=== PATIENT | male | born 1990 | race African-American/Black ===

== ENCOUNTER 2023-03-23 22:33 | Inpatient (IN) | payer OTHER, MEDICAID ==
[2023-03-23] MEDS ORDERED: OLANZapine 5 MG TAB PO PRN (22:39)
[2023-03-23] MEDS ORDERED: IBUPROFEN 600 MG TAB PO PRN (22:39)
[2023-03-23] MEDS ORDERED: hydrOXYzine HCL 50 MG/ML 1 ML VIAL IM PRN (22:39)
[2023-03-23] MEDS ORDERED: MAGNESIUM HYDROXIDE 2,400 MG/30 ML CUP PO PRN (22:39)
[2023-03-23] MEDS ORDERED: OLANZapine 10 MG VIAL IM PRN (22:39)
[2023-03-23] MEDS ORDERED: MAG HYDROX/AL HYDROX/SIMETH 30 ML CUP PO PRN (22:39)
[2023-03-23] MEDS ORDERED: ACETAMINOPHEN TAB 325 MG TAB PO PRN (22:39)
[2023-03-23] MEDS ORDERED: hydrOXYzine pamoate 25 MG CAP PO PRN (22:42)
[2023-03-24] MEDS: NICOTINE 14MG/24HR PATCH TRANSDERM SCH (09:30)
[2023-03-24] MEDS ORDERED: LORazepam 1 MG TAB PO PRN ×2 (11:47→11:48)
[2023-03-24] MEDS ORDERED: LORazepam 2 MG/ML INJ IM PRN (11:47)
[2023-03-24] MEDS: ARIPiprazole 5 MG TAB PO SCH (13:02)
[2023-03-24] MEDS: SERTRALINE 50 MG TAB PO SCH (13:02)
--- NOTE | 2023-03-24 13:04 | P.HP ---
Psychiatric H&P - . H&P Date: 03/24/23 History & Physical: Allergies Allergy/AdvReac Type Severity Reaction Status Date / Time No Known Allergies Allergy Verified 01/26/23 01:15 Vital Signs Temp 97.5 F L 03/24/23 00:47 Pulse 58 L 03/24/23 00:47 Resp 16 03/24/23 00:47 BP 119/58 03/24/23 00:47 Pulse Ox 99 03/24/23 00:47 FiO2 Intake & Output 03/23/23 03/24/23 03/24/23 18:59 06:59 18:59 Weight 59.92 kg 03/24/23 11:50 IDENTIFYING DATA: Patient is a 32-year-old -Russian male, currently lives with his friend and is essentially homeless saying a different People's houses, works in a factory, has 5 kids HPI: Patient presented to the hospital as a transfer from [facility] on a petition and certificate. According to petition patient apparently was making threats to end his life and suicidal ideations, poor self-care and using drugs/drinking. Patient was seen today in his room and appeared to be somewhat lethargic/tired. He was agreeable to speak to card writer hand briefly. He claims that he is here to "seek help" however was fairly vague and evasive about the circumstances that led him to come to the hospital. He did state that he is been having "messed up thoughts" and states that he is "tired of living". He claims that he is mainly been having stressors of being homeless, unstable with his living situation living between different friend's house on couches and also "feeling like a burden". He states that he was from his girlfriend of 14 years back in August and has been not coping well. Claims that they have 5 children together. He states that "she cheated on me". He claims that he has high levels of anxiety during the day and also depression, he did give a vague history of possible manic episodes where we has decreased need for sleep and increased energy and risk-taking behaviors. Claims that his sleep and appetite are poor. Patient denies any suicidal or homicidal ideations intent or plan. At this time patient denies any auditory or visual hallucinations. Patient denies any flight of ideas racing thoughts and increased in goal directed behavior. Patient admits to using alcohol regularly, drinks about 2 or more beers a day, has a history of withdrawal symptoms including shakes and tremors. Patient states that he has been abusing cocaine more recently however was vague about the quantity. States that he also smokes cigarettes. PAST PSYCHIATRIC HISTORY: Patient states that he has history of ADHD and depression and anxiety. Patient is supposed to currently be on Ritalin, BuSpar and Lamictal however has not been taking it. Patient denies any previous psychi atric hospitalizations. Patient denies any psychiatric outpatient follow-up. Claims that he has a history of overdosing, cutting himself and also hanging. PMH:denies ALLERGIES: as per EMR CHEMICAL DEPENDENCY HISTORY: as per HPI FAMILY PSYCHIATRIC/SUBSTANCE USE HISTORY: Claims that his mother has a history of bipolar disorder SOCIAL HISTORY: Patient was born and raised in [facility], now currently lives in [place]. States that he completed up to 11th grade in school. States that he has 5 kids, currently lives with a friend and also is homeless. Claims that he has been to halfway in the past however did not relay what the charges was. MENTAL STATUS EXAM: General Appearance: Patient appears to be thin, multiple tattoos, stated age is alert, directable, and attempts to cooperate. Patient appears to have poor hygiene and grooming. Behavior: Patient is seated without any agitated behavior. Constricted, attempts to cooperate. Speech: Patient's speech is fluent and nonpressured. Vague, concrete. Mood/Affect: Patient reports their mood is depressed and anxious, affect is congruent and constricted. Suicidality/Homicidality: Patient denies having any homicidal ideation intent or plan. Denies any suicidal ideations intent or plan Perceptions: Patient denies any visual hallucinations and denies any auditory hallucinations Though content/process: There is no evidence of any delusional thought content and thought process is linear and goal-directed. [place]. Memory and concentration: AOX3, grossly intact for the purposes of this session. Can spell "WORLD" backwards Judgment and insight: poor STRENGTHS/WEAKNESSES: strength is that patient is resilient. Weakness is that patient has poor judgment and is impulsive INTELLECT: average IMPRESSIONS: Bipolar depression History of ADHD Cocaine use disorder Alcohol use disorder Nicotine dependence PLAN: -Patient is admitted under voluntary status to MHU for stabilization of psychiatric symptoms and safety. Patient has signed adult voluntary form and medication consent and is placed in patient's chart. -Medications : Will start patient on Zoloft 50 mg daily for mood/anxiety, Abilify 5 mg daily for mood stabilization, trazodone 50 mg daily at bedtime for insomnia/mood. -Ativan and Zyprexa PRN for agitation/aggression. Vistaril when necessary for anxiety. -CIAK protocol with Ativan PRN for ETOH withdrawal -Patient was counselled on substance abuse and desired to cut back on use -Patient was informed of the risks, benefits and side effects of the medication and patient verbally consented to taking the medications. Patient signed med consent form and was placed in chart. -Internal Medicine consult to perform medical evaluation and physical. -NRT - nicotine patch -SW on board for discharge planning. Encourage patient to participate in groups to work on coping skills. 03/24/23 13:00
[2023-03-24] MEDS ORDERED: traZODone HCL 50 MG TAB PO SCH (21:00)
--- NOTE | 2023-03-25 07:43 | CONS ---
CONSULTATION HISTORY OF PRESENT ILLNESS: A 32-year-old white male, who was in psych [facility] for kind of a anitha type episode, losing he is a smoker, possibly some asthma. Otherwise, he is a pretty healthy jose elias. He is on nicotine patch. Psychiatry put him on Desyrel, Zoloft, Zyprexa, nicotine patch, Ativan p.r.n., Abilify. Otherwise medically stable. PHYSICAL EXAMINATION: VITAL SIGNS: Temp 97.5, blood pressure 119/58, O2 is 99% on room air, pulse 58, respiratory rate 16 to 18. Plese see further details in ER. ASSESSMENT: Probable bipolar depression, anxiety, nicotine addiction, probable asthma. Continue current medications per Psychiatry. Medically, he is a pretty healthy kid. Nicotine patch for smoking. Otherwise, please see further orders. MMODL / IJN: [id number] /
[2023-03-25] MEDS: SERTRALINE 50 MG TAB PO SCH (08:43)
[2023-03-25] MEDS: NICOTINE 14MG/24HR PATCH TRANSDERM SCH (08:43)
[2023-03-25] MEDS: ARIPiprazole 5 MG TAB PO SCH (08:43)
--- NOTE | 2023-03-25 10:16 | P.PN ---
Progress Note - Text Progress Note Date: 03/25/23 Interval history: Patient was seen today laying in his bed and was agreeable to speak to creative services writer. Patient appeared to go continue to be fairly concrete, constricted in his affect. He is also fairly nonchalant disinterested in the conversation. He continues to state that he feels "depressed" and states that he is not participating much in groups. He claims that he did not sleep well last night, we spoke about increasing his medications that she is okay with. He states that he may want to harm someone however did not give a specific target and states that "they're not in here". He denies any suicidal thoughts at this time. Denies any auditory or visual hallucinations. He is not endorsing any paranoia, he was fairly concrete however was directable and answered questions appropriately. He states that his appetite is fair at this time. He has been taking his medications and not reporting any side effects. MENTAL STATUS EXAM: General Appearance: Patient appears to be thin, multiple tattoos, stated age is alert, directable, and attempts to cooperate. Patient appears to have mildly improving hygiene and grooming. Behavior: Patient is seated without any agitated behavior. Constricted, nonchalant. Speech: Patient's speech is fluent and nonpressured. Vague, concrete. Mood/Affect: Patient reports their mood is depressed, affect is congruent and constricted. Suicidality/Homicidality: Patient denies having any homicidal ideation intent or plan. Denies any suicidal ideations intent or plan Perceptions: Patient denies any visual hallucinations and denies any auditory hallucinations Though content/process: There is no evidence of any delusional thought content and thought process is linear and goal-directed. [place]. Memory and concentration: AOX3, grossly intact for the purposes of this session Judgment and insight: poor IMPRESSIONS: Bipolar depression History of ADHD Cocaine use disorder Alcohol use disorder Nicotine dependence Plan: -Patient is admitted under voluntary status to MHU for stabilization of psychiatric symptoms and safety. Patient has signed adult voluntary form and medication consent and is placed in patient's chart. -Medications : increase Zoloft 100 mg daily for mood/anxiety, increase Abilify 5 mg daily for mood stabilization, increase trazodone 100 mg daily at bedtime for insomnia/mood. decrease librium 10 mg QID for etoh withdrawal sx and taper down. -Ativan and Zyprexa PRN for agitation/aggression. Vistaril when necessary for anxiety. -CIWA protocol with Ativan PRN for ETOH withdrawal -NRT - nicotine patch -SW on board for discharge planning. Encourage patient to participate in groups to work on coping skills.
[2023-03-25] MEDS ORDERED: traZODone HCL 100 MG TAB PO SCH (21:00)
[2023-03-26 02:13] VITALS: TEMP 98.3
[2023-03-26] MEDS: ARIPiprazole 5 MG TAB PO SCH (08:54)
[2023-03-26] MEDS: NICOTINE 14MG/24HR PATCH TRANSDERM SCH (08:54)
[2023-03-26] MEDS: SERTRALINE 100 MG TAB PO SCH (08:54)
--- NOTE | 2023-03-26 10:20 | P.PN ---
Progress Note - Text Progress Note Date: 03/26/23 Interval history: Patient was seen today sitting in on group and was agreeable to speak to policy writer typist in the office. Patient continues to have a fairly constricted affect, mild improvement in his tone of voice. He states that he is doing "fine" today. He claims that he has been improving with regard to depression and also his anxiety. He claims that he is able to go to groups and was trying to go [facility] more groups yesterday and also this morning. Claims that he is eating fairly. He states that he is getting worried about his work and states that "I'm been a missed a whole paycheck". He did ask about the different options about signing himself out. He states that he is agreeable to continue with treatment. Claims that he had very minor withdrawal alcohol symptoms last night however tased feeling better. He spoke more about his medications and treatment plan. He claims that last night he slept fairly initially however did wake up in the middle the night and found it difficult to get back to sleep. He denies any homicidal or suicidal thoughts at this time. Denies any auditory or visual hallucinations. He is not endorsing any paranoia, he was fairly concrete however was directable and answered questions appropriately. He has been taking his medications and not reporting any side effects. MENTAL STATUS EXAM: General Appearance: Patient appears to be thin, multiple tattoos, stated age is alert, directable, and attempts to cooperate. Patient appears to have mildly improving hygiene and grooming. Behavior: Patient is seated without any agitated behavior. Constricted, nonchalant, mildly Speech: Patient's speech is fluent and nonpressured. concrete. Mood/Affect: Patient reports their mood is improving mildly, affect is congruent and less constricted. Suicidality/Homicidality: Patient denies having any homicidal ideation intent or plan. Denies any suicidal ideations intent or plan Perceptions: Patient denies any visual hallucinations and denies any auditory hallucinations Though content/process: There is no evidence of any delusional thought content and thought process is linear and goal-directed. [place]. Memory and concentration: AOX3, grossly intact for the purposes of this session Judgment and insight: improving mildly IMPRESSIONS: Bipolar depression History of ADHD Cocaine use disorder Alcohol use disorder Nicotine dependence Plan: -Patient is admitted under voluntary status to MHU for stabilization of psychiatric symptoms and safety. Patient has signed adult voluntary form and medication consent and is placed in patient's chart. -Medications : continue Zoloft 100 mg daily for mood/anxiety, Abilify 5 mg daily for mood stabilization, increase trazodone 150 mg daily at bedtime for insomnia/mood. decrease librium 10 mg TID for etoh withdrawal sx and taper down over the weekend -Ativan and Zyprexa PRN for agitation/aggression. Vistaril when necessary for anxiety. -WA protocol with Ativan PRN for ETOH withdrawal -NRT - nicotine patch -SW on board for discharge planning. Encourage patient to participate in groups to work on coping skills. if patient is doing well and improved psychiatrically then likely dishcarge wednesday back to friends house.
[2023-03-26] MEDS: traZODone HCL 50 MG TAB PO SCH (21:55)
[2023-03-27 07:07] VITALS: RESP 18
[2023-03-27] MEDS: SERTRALINE 100 MG TAB PO SCH (08:56)
[2023-03-27] MEDS: NICOTINE 14MG/24HR PATCH TRANSDERM SCH (08:56)
[2023-03-27] MEDS: ARIPiprazole 5 MG TAB PO SCH (08:56)
--- NOTE | 2023-03-27 09:00 | P.PN ---
Subjective Progress Note Date: 03/27/23 Principal diagnosis: Bipolar 1 depressed Alcohol use disorder Diagnosis: Bipolar 1 depressed Rule out ADHD The patient says he was able to sleep last night and he has not been sleeping before he came here. Of course he staying in a friend's apartment sleeping in a closet without even a mattress on the floor. He goes to work and a job he does not like but that he put up with in trying to provide a home in food for his and children. He's been with her for 14 years she finally got a job to help out and then started having an affair with one of the men she works with and threw him out. He is coming off of alcohol and is on Librium for that seems to doing well and she since he slept well last night. He says that in the past what seemed to really help with Ritalin because he has a long-term difficulty with energy and focus. Objective the patient looks tired and sad decreased eye contact. He is oriented to person place time and circumstance self-care is minimal does not look like he combed his hair today. He still can't see any hope as he has a -end job. His has thrown him out. No psychotic symptoms evidence or acknowledge. Gait and station he moves kind of slowly. Appears to be intelligent and able to understand that he has to do well the children are going to do well because is not taking good care of them. Current medications are Zoloft 100 Abilify 5 at night does seem to have helped him sleep as well as Librium for withdrawal seems to be going well.. Assessment he still pretty depressed and I think would still be a danger to himself it will be just as important to work on post discharge planning and resources. He says he has gone to counseling in the past and didn't find somewhat useful but had trouble remembering the ideas during everyday function Objective - Vital Signs Vital signs: Vital Signs Temp 98.3 F 03/26/23 02:00 Pulse 88 03/27/23 07:06 Resp 18 03/27/23 07:06 BP 98/57 03/27/23 07:06 Pulse Ox 99 03/27/23 07:06 FiO2
[2023-03-27] MEDS: NICOTINE GUM (POLACRILEX) 2 MG GUM BUCCAL PRN (16:11)
[2023-03-27] MEDS: traZODone HCL 50 MG TAB PO SCH (20:47)
[2023-03-28] MEDS: ARIPiprazole 5 MG TAB PO SCH (08:50)
[2023-03-28] MEDS: SERTRALINE 100 MG TAB PO SCH (08:50)
[2023-03-28] MEDS: NICOTINE 14MG/24HR PATCH TRANSDERM SCH (08:50)
[2023-03-28] MEDS: NICOTINE GUM (POLACRILEX) 2 MG GUM BUCCAL PRN ×3 (14:57→20:49)
--- NOTE | 2023-03-28 14:59 | P.PN ---
Subjective Progress Note Date: 03/28/23 Principal diagnosis: Bipolar 1 depressed Alcohol use disorder The patient says that he is doing fine and we should just let him get home he needs to get home because important things to do and he has a plan and he will be fine here I asked him to be more specific he said he can get to and from work by riding his bicycle he has a place to stay he has a job. He says the medicine that was being given to him by his outpatient doctor which she felt worked better than the medicine here. It should be noted that he doesn't have Ritalin here and did have that there. So he is going to just go back to his other doctor and the change back to the medicines he had. He said the reason he came off of it was he was having trouble finding a time where he could get in to see his doctor and not miss work. He says he will continue the current medicine until he can see that other doctor and get on that. He says he been going to groups and participating Objective the patient is very flat somewhat sullen affect but says he feels "fine". He denies any psychotic symptoms any suicidal symptoms any agitation. He said he only slept about 4 or 5 hours last night and would like something that would extend that further. He is not irrational I do not see any psychotic responses he does not report any delusional thinking. Assessment patient is not that insightful but does seem to be fairly stable. Plan I'm going to add in melatonin 5 with the trazodone 150 also urged him to w rite up a discharge plan and presented to the team tomorrow. Objective - Vital Signs Vital signs: Vital Signs Temp 98.3 F 03/26/23 02:00 Pulse 89 03/28/23 06:09 Resp 18 03/28/23 06:09 BP 97/55 03/28/23 06:09 Pulse Ox 99 03/28/23 06:09 FiO2
--- NOTE | 2023-03-28 15:02 | P.PN ---
Subjective Progress Note Date: 03/28/23 Principal diagnosis: Bipolar 1 depressed Alcohol use disorder Diagnosis: Bipolar 1 depressed Rule out ADHD The patient says he was able to sleep only 4 hours last night He is coming off of alcohol and is on Librium for that seems to doing well. He does not seem to be agitated or restless. He says that in the past what seemed to really help with Ritalin because he has a long-term difficulty with energy and focus. He says he just wants to get out here go back to work right his bike back and forth to work see his outpatient doctor and get back on the medicines that were working for him before. Objective the patient looks tired and sad decreased eye contact. However when he talked he seemed to be oriented and logical denied any kind of psychotic symptoms any depression or suicidality Current medications are Zoloft 100 Abilify 5 at night he is also on trazodone at 150 which for some reason did not work as well last night, Librium for withdrawal seems to be going well.. Assessment he still pretty depressed and I think would still be a danger to himself it will be just as important to work on post discharge planning and resources. He says he has gone to counseling in the past and didn't find somewhat useful but had trouble remembering the ideas during everyday function. Plan: I'll add a little melatonin to his trazodone and told him to work on his discharge plan and presented to the 8 Objective - Vital Signs Vital signs: Vital Signs Temp 98.3 F 03/26/23 02:00 Pulse 89 03/28/23 06:09 Resp 18 03/28/23 06:09 BP 97/55 03/28/23 06:09 Pulse Ox 99 03/28/23 06:09 FiO2
[2023-03-28] MEDS: traZODone HCL 50 MG TAB PO SCH (20:48)
[2023-03-28] MEDS ORDERED: MELATONIN 5 MG TABLET PO SCH (21:00)
[2023-03-29 06:18] VITALS: BP 102/55; PULSE 91
[2023-03-29] MEDS: SERTRALINE 100 MG TAB PO SCH (07:50)
[2023-03-29] MEDS: NICOTINE 14MG/24HR PATCH TRANSDERM SCH (07:50)
[2023-03-29] MEDS: ARIPiprazole 5 MG TAB PO SCH (07:50)
--- NOTE | 2023-03-29 10:25 | P.DS ---
Providers Date of admission: 03/24/23 00:10 Expected date of discharge: 03/29/23 Attending physician: Fede Hu MD Consults: 03/23/23 22:39 Consult Physician Routine Consulting Provider: Moy Brooke Consult Reason/Comments: H&P and medical Do you want consulting provider notified?: Yes, Notify in am Primary care physician: Moy Brooke - Discharge Diagnosis(es) (1) Bipolar depression Current Visit: Yes Status: Acute Priority: High (2) History of ADHD Current Visit: Yes Status: Acute Priority: Low (3) Cocaine use disorder Current Visit: Yes Status: Acute Priority: High (4) Alcohol use disorder Current Visit: Yes Status: Acute Priority: Medium (5) Nicotine dependence Current Visit: Yes Status: Acute Priority: Low Hospital Course: Admission HPI: Admission note was completed by television writer "Patient is a 32-year-old - [place] male, currently lives with his friend and is essentially homeless saying a different People's houses, works in a factory, has 5 kids. Patient presented to the hospital as a transfer from [facility] on a petition and certificate. According to petition patient apparently was making threats to end his life and suicidal ideations, poor self-care and using drugs/drinking. Patient was seen today in his room and appeared to be somewhat lethargic/tired. He was agreeable to speak to television writer briefly. He claims that he is here to "seek help" however was fairly vague and evasive about the circumstances that led him to come to the hospital. He did state that he is been having "messed up thoughts" and states that he is "tired of living". He claims that he is mainly been having stressors of being homeless, unstable with his living situation living between different friend's house on couches and also "feeling like a burden". He states that he was from his girlfriend of 14 years back in August and has been not coping well. Claims that they have 5 children together. He states that "she cheated on me". He claims that he has high levels of anxiety during the day and also depression, he did give a vague history of possible manic episodes where we has decreased need for sleep and increased energy and risk-taking behaviors. Claims that his sleep and appetite are poor. Patient denies any suicidal or homicidal ideations intent or plan. At this time patient denies any auditory or visual hallucinations. Patient denies any flight of ideas racing thoughts and increased in goal directed behavior. Patient admits to using alcohol regularly, drinks about 2 or more beers a day, has a history of withdrawal symptoms including shakes and tremors. Patient states that he has been abusing cocaine more recently however was vague about the quantity. States that he also smokes cigarettes." Hospital course: Upon admission to the unit patient was directable and agreeable to commence treatment and signed adult voluntary form . Patient was initially isolative however with time and treatment he got along well with other patients on the unit and followed unit protocol. Patient was compliant with the medications and denied any side effects throughout hospital course. Patient was started on Abilify 5 mg daily for mood stabilization, Zoloft increased her dose of 100 mg daily for mood/anxiety, trazodone 150 mg daily at bedtime for insomnia/mood, melatonin 5 mg daily at bedtime for sleep. Patient was placed on Librium scheduled which was gradually tapered down and Ativan when necessary and CIWA was for alcohol withdrawal. Patient spoke of his stressors and engaged in therapy both group and individual. Patient was also seen by medical team for history and physical exam. Throughout the course of the hospitalization patient gradually improved with regards to mood, anxiety, suicidal thoughts, sleep and became more future oriented with improved insight and judgment. On the day of discharge patient denied any suicidal or homicidal ideations intent or plan denied any auditory or visual hallucinations. Patient endorsed wanting to live for his health and family. The patient denied any access to guns or weapons. Patient denied any paranoia and did not endorse any delusions. Patient does have a significant history of substance abuse and was counseled on abstaining from all substances including alcohol and marijuana. Patient was offered however declined inpatient substance-abuse rehab. Patient elected to do outpatient substance use treatment program through [facility]. Patient was also counseled on the medications and need for regular compliance and was encouraged to follow-up with their outpatient appointment for mental health and also for primary care. Prior to discharge a family meeting will be arranged by nephrology social worker to answer any questions and ensure safety upon discharge. Mental status exam: General Appearance: Patient appears to be stated age is alert, pleasant, and cooperative. Patient is in no acute distress and has improved hygiene and grooming Behavior: Patient is calmly seated without any agitated behavior. Speech: Patient's speech is fluent and nonpressured. Mood/Affect: Patient reports their mood is "good", affect is congruent and euthymic. Suicidality/Homicidality: Patient denies having any suicidal or homicidal ideation intent or plan. Perceptions: Patient denies any auditory or visual hallucinations. Though content/process: There is no evidence of any delusional thought content and thought process is linear and goal-directed. more future oriented Memory and concentration: AOX3, grossly intact for the purposes of this session. Can spell "WORLD" backwards correctly. Judgment and insight: improved with guarded prognosis Impression: Bipolar depression History of ADHD Cocaine use disorder Alcohol use disorder Nicotine dependence Plan: -Continue with discharge today as patient has improved and stabilized psychiatrically and is not currently an imminent threat to himself and/or others. Patient will remain at chronically elevated risk for harm to self and/or others due to his polysubstance abuse. -Continue medications: Abilify 5 mg daily for mood stabilization, Zoloft 100 mg daily for mood/anxiety, trazodone 150 mg daily at bedtime for mood/insomnia, melatonin 5 mg daily at bedtime for sleep. -Patient was counseled on the need for medication compliance and appropriate follow-up at mental health and also primary care for medical issues. Patient verbalized understanding and agreed. -Social work to help Renata patient's discharge today back to his friend's house and to ensure safety at the home. Social work also to arrange for patients follow up appointments with [facility] for psychiatric care along with follow up with primary care provider. -Patient counseled on abstaining from recreational drugs and marijuana and alcohol. Was informed/educated on the adverse effects on their physical and mental health. Patient verbally agreed and understood. Patient was offered substance abuse treatment however declined at this time. -Patient was instructed to return to the hospital or seek immediate medical care if their psychiatric or medical symptoms do worsen or reoccur. Allergies Allergy/AdvReac Type Severity Reaction Status Date / Time No Known Allergies Allergy Verified 01/26/23 01:15 Vital Signs Temp 98.3 F 03/26/23 02:00 Pulse 91 03/29/23 06:17 Resp 18 03/29/23 06:17 BP 102/55 03/29/23 06:17 Pulse Ox 99 03/29/23 06:17 FiO2 Patient Condition at Discharge: Stable Plan - Discharge Summary Discharge Rx Participant: Yes New Discharge Prescriptions: New Nicotine 14Mg/24Hr Patch [Habitrol] 1 patch TRANSDERM DAILY 14 Days #14 patch Sertraline [Zoloft] 100 mg PO DAILY 30 Days #30 tab ARIPiprazole [Abilify] 5 mg PO DAILY 30 Days #30 tab Melatonin 5 mg PO HS 30 Days #30 tab Nicotine Gum (Polacrilex) [Nicorette] 2 mg BUCCAL Q2HR PRN pieceofgum PRN Reason: Nicotine Cravings traZODone HCL 150 mg PO HS 30 Days #30 tablet hydrOXYzine pamoate [Vistaril] 50 mg PO DAILY PRN 30 Days #60 cap PRN Reason: Anxiety Discharge Medication List ARIPiprazole [Abilify] 5 mg PO DAILY 30 Days #30 tab 03/29/23 [Rx] Melatonin 5 mg PO HS 30 Days #30 tab 03/29/23 [Rx] Nicotine 14Mg/24Hr Patch [Habitrol] 1 patch TRANSDERM DAILY 14 Days #14 patch 03/29/23 [Rx] Nicotine Gum (Polacrilex) [Nicorette] 2 mg BUCCAL Q2HR PRN pieceofgum 03/29/23 [Rx] Sertraline [Zoloft] 100 mg PO DAILY 30 Days #30 tab 03/29/23 [Rx] hydrOXYzine pamoate [Vistaril] 50 mg PO DAILY PRN 30 Days #60 cap 03/29/23 [Rx] traZODone HCL 150 mg PO HS 30 Days #30 tablet 03/29/23 [Rx] Activity/Diet/Wound Care/Special Instructions: Avoid the use of street drugs and alcohol. Take all medications as prescribed. When you are in need of refills on your medications, please contact your medical provider and/or outpatient psychiatrist/provider to have this done. Please go to your scheduled outpatient appointment for aftercare treatment. If symptoms return or become worse, call the crisis line at and/or go to the nearest emergency room for evaluation. National Suicide Hotline 988. Discharge Disposition: HOME SELF-CARE
== END 2023-03-29 13:54 | disposition home or self-care (01) | DRG 885 ==
LOC: 3MHU 03-24 00:10
PROVIDERS: ADMIT Psychiatry & Neurology Psychiatry; ATTEND Psychiatry & Neurology Psychiatry
DX: F31.30 Bipolar disorder, current episode depressed, mild or moderate severity, unspecified (principal); F10.139 Alcohol abuse with withdrawal, unspecified; R45.851 Suicidal ideations; F14.10 Cocaine abuse, uncomplicated; F17.210 Nicotine dependence, cigarettes, uncomplicated; F41.9 Anxiety disorder, unspecified; G47.00 Insomnia, unspecified; J45.909 Unspecified asthma, uncomplicated; Z59.00 Homelessness unspecified; Z79.899 Other long term (current) drug therapy; Z71.41 Alcohol abuse counseling and surveillance of alcoholic; Z71.51 Drug abuse counseling and surveillance of drug abuser; Z71.6 Tobacco abuse counseling

== ENCOUNTER 2024-08-26 16:47 | Emergency (ER) | payer MEDICAID, OTHER ==
[2024-08-26 17:39] VITALS: RESP 18; TEMP 98.6
--- NOTE | 2024-08-26 18:12 | ED ---
Abdominal Pain HPI - General Chief Complaint: Abdominal Pain Stated Complaint: NVD Time Seen by Provider: 08/26/24 18:10 Source: patient, RN notes reviewed Mode of arrival: ambulatory Limitations: no limitations - History of Present Illness Initial Comments: 34-year-old male presenting for nausea/vomiting/diarrhea x 1 day. States he has not been able to keep any food or water down since symptom onset. Endorses over 5 episodes of watery, nonbloody diarrhea. He does endorse epigastric cramping associated with vomiting. Denies hematemesis or coffee-ground emesis. Denies fevers. States family members were sick with similar symptoms 2 days ago. Denies history of abdominal surgeries. - Related Data Previous Rx's Medication Instructions Recorded ARIPiprazole [Abilify] 5 mg PO DAILY 30 Days #30 tab 03/29/23 Melatonin 5 mg PO HS 30 Days #30 tab 03/29/23 Nicotine 14Mg/24Hr Patch [Habitrol] 1 patch TRANSDERM DAILY 14 Days 03/29/23 #14 patch Nicotine Gum (Polacrilex) 2 mg BUCCAL Q2HR PRN pieceofgum 03/29/23 [Nicorette] Sertraline [Zoloft] 100 mg PO DAILY 30 Days #30 tab 03/29/23 hydrOXYzine pamoate [Vistaril] 50 mg PO DAILY PRN 30 Days #60 cap 03/29/23 traZODone HCL 150 mg PO HS 30 Days #30 tablet 03/29/23 Allergies Allergy/AdvReac Type Severity Reaction Status Date / Time No Known Allergies Allergy Verified 08/26/24 17:34 Review of Systems ROS Statement: Those systems with pertinent positive or pertinent negative responses have been documented in the HPI. ROS Other: All systems not noted in ROS Statement are negative. Past Medical History Past Medical History: No Reported History History of Any Multi-Drug Resistant Organisms: None Reported Past Surgical History: No Surgical Hx Reported Past Psychological History: ADD/ADHD Smoking Status: Current every day smoker Past Alcohol Use History: Occasional Past Drug Use History: Cocaine, Methamphetamine General Exam Limitations: no limitations General appearance: alert, in no apparent distress Head exam: Present: atraumatic, normocephalic, normal inspection Eye exam: Present: normal appearance, PERRL, EOMI. Absent: scleral icterus, conjunctival injection, periorbital swelling Respiratory exam: Present: normal lung sounds bilaterally. Absent: respiratory distress, wheezes, rales, rhonchi, stridor Cardiovascular Exam: Present: regular rate, normal rhythm, normal heart sounds. Absent: systolic murmur, diastolic murmur, rubs, gallop, clicks GI/Abdominal exam: Present: soft, normal bowel sounds. Absent: distended, tenderness, guarding, rebound, rigid Neurological exam: Present: alert, oriented X3 Psychiatric exam: Present: normal affect, normal mood Skin exam: Present: warm, dry, intact, normal color. Absent: rash Course Vital Signs 08/26/24 17:35 Temperature 98.6 F Pulse Rate 116 H Respiratory 18 Rate Blood Pressure 148/86 O2 Sat by Pulse 100 Oximetry Medical Decision Making - Medical Decision Making Was pt. sent in by a medical professional or institution ([facility], LOG CHIPPER OPERATOR, urgent care, hospital, or skilled nursing...) When possible be specific @ -No Did you speak to anyone other than the patient for history (EMS, parent, family, police, friend...)? What history was obtained from this source @ -No Did you review nursing and triage notes (agree or disagree)? Why? @ -I reviewed and agree with nursing and triage notes Were old charts reviewed (outside hosp., previous admission, EMS record, old EKG, old radiological studies, urgent care reports/EKG's, skilled nursing records)? Report findings @ -No old charts were reviewed Differential Diagnosis (chest pain, altered mental status, abdominal pain women, abdominal pain men, vaginal bleeding, weakness, fever, dyspnea, syncope, headache, dizziness, GI bleed, back pain, seizure, CVA, palpatations, mental health, musculoskeletal)? @ -Differential Appendicitis, cholecystitis, diverticulosis, ischemic bowel, pancreatitis, hepatitis, UTI, gastroenteritis, AAA, incarcerated hernia, bowel obstruction, constipation, inflammatory bowel, hepatitis, peptic ulcer disease, splenic infarction, perforated viscus, testicular torsion, this is not meant to be an all-inclusive list EKG interpreted by me (3pts min.). @ -None X-rays interpreted by me (1pt min.). @ -None done CT interpreted by me (1pt min.). @ -None done U/S interpreted by me (1pt. min.). @ -None done What testing was considered but not performed or refused? (CT, X-rays, U/S, labs)? Why? @ -Urinalysis ordered however patient refuses, imaging considered but deferred due to no abdominal tenderness and unremarkable lab work What meds were considered but not given or refused? Why? @ -None Did you discuss the management of the patient with other professionals (professionals i.e. Dr., PA, LOG CHIPPER OPERATOR, lab, RT, psych nurse, social media developer, independent freight agent, teacher, jailer/training officer, casey saw operator)? Give summary @ -No Was smoking cessation discussed for >3mins.? @ -No Was critical care preformed (if so, how long)? @ -No Were there social determinants of health that impacted care today? How? (Homelessness, low income, unemployed, alcoholism, drug addiction, transportation, low edu. Level, literacy, decrease access to med. care, residential, rehab)? @ -No Was there de-escalation of care discussed even if they declined (Discuss DNR or withdrawal of care, Hospice)? DNR status @ -No What co-morbidities impacted this encounter? (DM, HTN, Smoking, COPD, CAD, Cancer, CVA, ARF, Chemo, Hep., AIDS, mental health diagnosis, sleep apnea, morbid obesity)? @ -None Was patient admitted / discharged? Hospital course, mention meds given and route, prescriptions, significant lab abnormalities, going to OR and other pertinent info. @ -Discharge. This is a 34-year-old male presenting with nausea/vomiting/diarrhea x 1 day. Patient is mildly tachycardic, otherwise vital signs within acceptable limits. Abdomen is soft and nontender. Patient is provided with IV fluids, analgesics, and antiemetics. Lab work unremarkable. Patient refuses urinalysis. Patient reports significant improvement of symptoms and states he would like to be discharged. Discussed diagnosis of gastroenteritis. Appropriate return precautions and supportive care discussed. Case was discussed with my ED attending Dr. Hernández Undiagnosed new problem with uncertain prognosis? @ -No Drug Therapy requiring intensive monitoring for toxicity (Heparin, Nitro, Insulin, Cardizem)? @ -No Were any procedures done? @ -No Diagnosis/symptom? @ -Viral gastroenteritis Acute, or Chronic, or Acute on Chronic? @ -Acute Uncomplicated (without systemic symptoms) or Complicated (systemic symptoms)? @ -Uncomplicated Side effects of treatment? @ -No Exacerbation, Progression, or Severe Exacerbation? @ -No Poses a threat to life or bodily function? How? (Chest pain, [place], [place], pneumonia, PE, COPD, DKA, ARF, appy, cholecystitis, CVA, Diverticulitis, Homicidal, Suicid al, threat to staff... and all critical care pts) @ -Not at this time - Lab Data Result diagrams: 08/26/24 18:30 08/26/24 18:30 Lab Results 08/26/24 08/26/24 08/26/24 Range/Units 18:30 18:30 18:30 WBC 8.1 (3.8-10.6) k/uL RBC 4.91 (4.30-5.90) m/uL Hgb 16.1 (13.0-17.5) gm/dL Hct 49.0 (39.0-53.0) % MCV 99.8 (80.0-100.0) fL MCH 32.8 (25.0-35.0) pg MCHC 32.8 (31.0-37.0) g/dL RDW 13.7 (11.5-15.5) % Plt Count 270 (150-450) k/uL MPV 7.3 Neutrophils % 61 % Lymphocytes % 25 % Monocytes % 9 % Eosinophils % 0 % Basophils % 0 % Neutrophils # 5.0 (1.3-7.7) k/uL Lymphocytes # 2.0 (1.0-4.8) k/uL Monocytes # 0.8 (0-1.0) k/uL Eosinophils # 0.0 (0-0.7) k/uL Basophils # 0.0 (0-0.2) k/uL Sodium 137 (137-145) mmol/L Potassium 3.7 (3.5-5.1) mmol/L Chloride 100 (98-107) mmol/L Carbon Dioxide 28 (22-30) mmol/L Anion Gap 9 mmol/L BUN 3 L (9-20) mg/dL Creatinine 0.72 (0.66-1.25) mg/dL Est GFR (CKD-EPI)AfAm >90 (>60 ml/min/1.73 sqM) Est GFR (CKD-EPI)NonAf >90 (>60 ml/min/1.73 sqM) Glucose 110 H (74-99) mg/dL Plasma Lactic Acid Riccardo (0.7-2.0) mmol/L Calcium 10.1 (8.4-10.2) mg/dL Magnesium 1.9 (1.6-2.3) mg/dL Total Bilirubin 0.5 (0.2-1.3) mg/dL AST 39 (17-59) U/L ALT 21 (4-49) U/L Alkaline Phosphatase 67 (38-126) U/L Total Protein 7.4 (6.3-8.2) g/dL Albumin 4.7 (3.5-5.0) g/dL Lipase 29 (23-300) U/L Influenza Type A (PCR) Not Detected (Not Detectd) Influenza Type B (PCR) Not Detected (Not Detectd) RSV (PCR) Not Detected (Not Detectd) SARS-CoV-2 (PCR) Not Detected (Not Detectd) 08/26/24 Range/Units 18:30 WBC (3.8-10.6) k/uL RBC (4.30-5.90) m/uL Hgb (13.0-17.5) gm/dL Hct (39.0-53.0) % MCV (80.0-100.0) fL MCH (25.0-35.0) pg MCHC (31.0-37.0) g/dL RDW (11.5-15.5) % Plt Count (150-450) k/uL MPV Neutrophils % % Lymphocytes % % Monocytes % % Eosinophils % % Basophils % % Neutrophils # (1.3-7.7) k/uL Lymphocytes # (1.0-4.8) k/uL Monocytes # (0-1.0) k/uL Eosinophils # (0-0.7) k/uL Basophils # (0-0.2) k/uL Sodium (137-145) mmol/L Potassium (3.5-5.1) mmol/L Chloride (98-107) mmol/L Carbon Dioxide (22-30) mmol/L Anion Gap mmol/L BUN (9-20) mg/dL Creatinine (0.66-1.25) mg/dL Est GFR (CKD-EPI)AfAm (>60 ml/min/1.73 sqM) Est GFR (CKD-EPI)NonAf (>60 ml/min/1.73 sqM) Glucose (74-99) mg/dL Plasma Lactic Acid Riccardo 0.9 (0.7-2.0) mmol/L Calcium (8.4-10.2) mg/dL Magnesium (1.6-2.3) mg/dL Total Bilirubin (0.2-1.3) mg/dL AST (17-59) U/L ALT (4-49) U/L Alkaline Phosphatase (38-126) U/L Total Protein (6.3-8.2) g/dL Albumin (3.5-5.0) g/dL Lipase (23-300) U/L Influenza Type A (PCR) (Not Detectd) Influenza Type B (PCR) (Not Detectd) RSV (PCR) (Not Detectd) SARS-CoV-2 (PCR) (Not Detectd) Disposition Clinical Impression: Gastroenteritis Disposition: HOME SELF-CARE Condition: Stable Instructions (If sedation given, give patient instructions): Gastroenteritis (ED) Additional Instructions: Take Zofran as needed for nausea. Hydrate well. Please return to the Emergency Department if symptoms worsen or any other concerns. Is patient prescribed a controlled substance at d/c from ED?: No Referrals: None,Stated [REFERRING] - 1-2 days Time of Disposition: 20:37
[2024-08-26] MEDS: SODIUM CHLORIDE 0.9% 1,000 ML IV STA (18:34)
[2024-08-26 18:50] LABS: Basophils % (A) 0 %; Eosinophils % (A) 0 %; HGB 16.1 gm/dL (13.0-17.5); Lymphocytes % (A) 25 %; MCH 32.8 pg (25.0-35.0); MCHC 32.8 g/dL (31.0-37.0); MCV 99.8 fL (80.0-100.0); Mean Platelet Volume 7.3; Monocytes # (A) 0.8 k/uL (0-1.0); Monocytes % (A) 9 %; Neutrophils % (A) 61 %; Platelet Count 270 k/uL (150-450); RBC 4.91 m/uL (4.30-5.90); RDW 13.7 % (11.5-15.5); WBC 8.1 k/uL (3.8-10.6)
[2024-08-26] MEDS: ONDANSETRON 4 MG/2 ML VIAL IVP STA (19:05)
[2024-08-26] MEDS: KETOROLAC 15 MG/ML 1 ML VIAL IVP STA (19:06)
[2024-08-26 19:11] LABS: ALT 21 U/L (4-49); AST 39 U/L (17-59); African American GFR (CKD) >90 (>60 ml/min/1.73 sqM); Albumin 4.7 g/dL (3.5-5.0); Alkaline Phosphatase 67 U/L (38-126); Anion Gap 9 mmol/L; Blood Urea Nitrogen 3 mg/dL (9-20); Calcium 10.1 mg/dL (8.4-10.2); Carbon Dioxide 28 mmol/L (22-30); Chloride 100 mmol/L (98-107); Glucose 110 mg/dL (74-99); Lipase 29 U/L (23-300); Magnesium 1.9 mg/dL (1.6-2.3); Non-African American GFR(CKD) >90 (>60 ml/min/1.73 sqM); Potassium 3.7 mmol/L (3.5-5.1); Sodium 137 mmol/L (137-145); Total Bilirubin 0.5 mg/dL (0.2-1.3); Total Protein 7.4 g/dL (6.3-8.2)
[2024-08-26] MEDS: ONDANSETRON 4 MG ODT STARTER PACK 2 TAB BTL PO STA (20:46)
[2024-08-26 21:34] VITALS: BP 130/80; PULSE 90
== END 2024-08-26 20:50 | disposition home or self-care (01) ==
LOC: EC 16:47
DX: K52.9 Noninfective gastroenteritis and colitis, unspecified (principal); F17.200 Nicotine dependence, unspecified, uncomplicated
CPT/HCPCS: 36415; 80053; 83605; 83690; 83735; 85025; 87636; 99284; 96374; 96375; 96361; J2405; J1885; S0119

== ENCOUNTER 2024-10-17 09:21 | Emergency (ER) | payer OTHER ==
[2024-10-17] MEDS: SODIUM CHLORIDE 0.9% 1,000 ML IV ONE (09:51)
--- NOTE | 2024-10-17 10:07 | ED ---
General Adult HPI - General Chief complaint: Recheck/Abnormal Lab/Rx Stated complaint: urogential Time Seen by Provider: 10/17/24 09:24 Source: patient, RN notes reviewed, old records reviewed Mode of arrival: ambulatory Limitations: no limitations - History of Present Illness Initial comments: 34-year-old male presents with rectal pain. Patient states that 3 days prior he had an episode of rectal bleeding. Patient is homosexual and has had anal intercourse in the past 2 weeks. He has pain with defecation. No further bleeding. He also admits to cocaine use and a heavy night of drinking prior to arrival. - Related Data Previous Rx's Medication Instructions Recorded ARIPiprazole [Abilify] 5 mg PO DAILY 30 Days #30 tab 03/29/23 Melatonin 5 mg PO HS 30 Days #30 tab 03/29/23 Nicotine 14Mg/24Hr Patch [Habitrol] 1 patch TRANSDERM DAILY 14 Days 03/29/23 #14 patch Nicotine Gum (Polacrilex) 2 mg BUCCAL Q2HR PRN pieceofgum 03/29/23 [Nicorette] Sertraline [Zoloft] 100 mg PO DAILY 30 Days #30 tab 03/29/23 hydrOXYzine pamoate [Vistaril] 50 mg PO DAILY PRN 30 Days #60 cap 03/29/23 traZODone HCL 150 mg PO HS 30 Days #30 tablet 03/29/23 Allergies Allergy/AdvReac Type Severity Reaction Status Date / Time No Known Allergies Allergy Verified 10/17/24 09:35 Review of Systems ROS Statement: Those systems with pertinent positive or pertinent negative responses have been documented in the HPI. ROS Other: All systems not noted in ROS Statement are negative. Past Medical History Past Medical History: No Reported History History of Any Multi-Drug Resistant Organisms: None Reported Past Surgical History: No Surgical Hx Reported Past Psychological History: ADD/ADHD Smoking Status: Current every day smoker Past Alcohol Use History: Occasional Past Drug Use History: Cocaine, Methamphetamine General Exam Limitations: no limitations General appearance: alert, in no apparent distress Head exam: Present: atraumatic, normocephalic Eye exam: Present: normal appearance, PERRL Respiratory exam: Present: normal lung sounds bilaterally. Absent: respiratory distress, wheezes Cardiovascular Exam: Present: normal rhythm, tachycardia GI/Abdominal exam: Present: soft. Absent: distended, tenderness, guarding Rectal exam: Present: hemorrhoids (Anal fissure at 12:00). Absent: black stool, bloody stool Extremities exam: Present: normal inspection Neurological exam: Present: alert, oriented X3, CN II-XII intact. Absent: motor sensory deficit Psychiatric exam: Present: normal affect, normal mood Skin exam: Present: warm, dry, intact Course Vital Signs 10/17/24 10/17/24 09:30 09:36 Temperature 97.9 F Pulse Rate 137 H Respiratory 20 Rate Blood Pressure 108/70 O2 Sat by Pulse 98 Oximetry Medical Decision Making - Medical Decision Making Was pt. sent in by a medical professional or institution (, MEG, FOREIGN COLLECTION CLERK, urgent care, hospital, or custodial...) When possible be specific @ -No Did you speak to anyone other than the patient for history (EMS, parent, family, police, friend...)? What history was obtained from this source @ -No Did you review nursing and triage notes (agree or disagree)? Why? @ -I reviewed and agree with nursing and triage notes Were old charts reviewed (outside hosp., previous admission, EMS record, old EKG, old radiological studies, urgent care reports/EKG's, custodial records)? Report findings @ -No old charts were reviewed MDM differential rectal bleeding EKG interpreted by me (3pts min.). @ -As above X-rays interpreted by me (1pt min.). @ -None done CT interpreted by me (1pt min.). @ -None done U/S interpreted by me (1pt. min.). @ -None done What testing was considered but not performed or refused? (CT, X-rays, U/S, labs)? Why? @ -None What meds were considered but not given or refused? Why? @ -None Did you discuss the management of the patient with other professionals (professionals i.e. , MEG, FOREIGN COLLECTION CLERK, lab, RT, psych nurse, nursing home social worker, field marketing lead, teacher, staff nuclear weapons officer, corrections caseworker)? Give summary @ -No Was smoking cessation discussed for >3mins.? @ -No Was critical care preformed (if so, how long)? @ -No Were there social determinants of health that impacted care today? How? (Homelessness, low income, unemployed, alcoholism, drug addiction, transportation, low edu. Level, literacy, decrease access to med. care, prison, rehab)? @ -No Was there de-escalation of care discussed even if they declined (Discuss DNR or withdrawal of care, Hospice)? DNR status @ -No What co-morbidities impacted this encounter? (DM, HTN, Smoking, COPD, CAD, Cancer, CVA, ARF, Chemo, Hep., AIDS, mental health diagnosis, sleep apnea, morbid obesity)? @ -Cocaine and alcohol abuse Was patient admitted / discharged? Hospital course, mention meds given and route, prescriptions, significant lab abnormalities, going to OR and other pertinent info. @ -34-year-old male presenting with pain at his anus. Patient has had anal intercourse in the past 2 weeks and has a fissure at 12:00. No active bleeding. Patient concerned that he is dehydrated secondary to a night of alcohol and cocaine consumption. Given IV fluids. He is instructed to apply topical ointment to the anus and avoid anal intercourse secondary to symptoms. Undiagnosed new problem with uncertain prognosis? @ -No Drug Therapy requiring intensive monitoring for toxicity (Heparin, Nitro, Insulin, Cardizem)? @ -No Were any procedures done? @ -No Diagnosis/symptom? @ -[Anal fissure, dehydration Acute, or Chronic, or Acute on Chronic? @ -Acute Uncomplicated (without systemic symptoms) or Complicated (systemic symptoms)? @ -[default Side effects of treatment? @ -No Exacerbation, Progression, or Severe Exacerbation? @ -No Poses a threat to life or bodily function? How? (Chest pain, USA, ME, pneumonia, PE, COPD, DKA, ARF, appy, cholecystitis, CVA, Diverticulitis, Homicidal, Suicidal, threat to staff... and all critical care pts) @ -No Disposition Clinical Impression: Dehydration, Anal fissure, Alcohol use disorder, Cocaine use disorder Disposition: HOME SELF-CARE Condition: Fair Instructions (If sedation given, give patient instructions): Anal Fissure (ED), Dehydration (ED) Is patient prescribed a controlled substance at d/c from ED?: No Referrals: Moy Brooke MD [Primary Care Provider] - 1-2 days Time of Disposition: 10:07
[2024-10-17 10:41] VITALS: BP 127/76; PULSE 102; RESP 18
[2024-10-17 10:56] VITALS: TEMP 98.1
== END 2024-10-17 10:55 | disposition home or self-care (01) ==
LOC: EC 09:21
DX: E86.0 Dehydration (principal); K60.2 Anal fissure, unspecified; F10.20 Alcohol dependence, uncomplicated; F14.10 Cocaine abuse, uncomplicated; F17.200 Nicotine dependence, unspecified, uncomplicated
CPT/HCPCS: 96360; 99283

== ENCOUNTER 2024-10-21 14:15 | Emergency (ER) | payer OTHER ==
[2024-10-21] MEDS: HYDROmorphone 1 MG/ML 1 ML SYRINGE IM STA (14:36)
[2024-10-21] MEDS: KETOROLAC 15 MG/ML 1 ML VIAL IM STA (14:37)
--- NOTE | 2024-10-21 14:46 | ED ---
Lower Extremity Injury HPI - General Chief Complaint: Extremity Injury, Lower Stated Complaint: swollen leg and pain Time Seen by Provider: 10/21/24 14:28 Source: patient, RN notes reviewed Mode of arrival: wheelchair Limitations: no limitations - History of Present Illness Initial Comments: This is a 34-year-old male who presents to the emergency department for a left knee injury. Last night he stepped on the ice and hit his left knee on the stairs. He has since had increasing pain and swelling to this area and states that he is having difficulty ambulating. Denies hitting his head or sustaining any other injuries. MD Complaint: knee injury - Related Data Previous Rx's Medication Instructions Recorded ARIPiprazole [Abilify] 5 mg PO DAILY 30 Days #30 tab 03/29/23 Melatonin 5 mg PO HS 30 Days #30 tab 03/29/23 Nicotine 14Mg/24Hr Patch [Habitrol] 1 patch TRANSDERM DAILY 14 Days 03/29/23 #14 patch Nicotine Gum (Polacrilex) 2 mg BUCCAL Q2HR PRN pieceofgum 03/29/23 [Nicorette] Sertraline [Zoloft] 100 mg PO DAILY 30 Days #30 tab 03/29/23 hydrOXYzine pamoate [Vistaril] 50 mg PO DAILY PRN 30 Days #60 cap 03/29/23 traZODone HCL 150 mg PO HS 30 Days #30 tablet 03/29/23 Lidocaine [Lidocaine Rectal Cream 28 gm TP TID #28 gram 10/17/24 5%] HYDROcodone/APAP 5-325MG [Dupont 1 tab PO Q6HR PRN 3 Days #12 tab 10/21/24 5-325] Ibuprofen [Motrin] 800 mg PO Q8H PRN #30 tab 10/21/24 Allergies Allergy/AdvReac Type Severity Reaction Status Date / Time No Known Allergies Allergy Verified 10/21/24 14:27 Review of Systems ROS Statement: Those systems with pertinent positive or pertinent negative responses have been documented in the HPI. ROS Other: All systems not noted in ROS Statement are negative. Past Medical History Past Medical History: No Reported History History of Any Multi-Drug Resistant Organisms: None Reported Past Surgical History: No Surgical Hx Reported Past Psychological History: ADD/ADHD Smoking Status: Current every day smoker Past Alcohol Use History: Occasional Past Drug Use History: Cocaine, Methamphetamine General Exam Limitations: no limitations General appearance: alert, in no apparent distress Head exam: Present: atraumatic, normocephalic, normal inspection Respiratory exam: Present: normal lung sounds bilaterally. Absent: respiratory distress, wheezes, rales, rhonchi, stridor Cardiovascular Exam: Present: regular rate, normal rhythm, normal heart sounds. Absent: systolic murmur, diastolic murmur, rubs, gallop, clicks Extremities exam: Present: other (Tenderness to palpation over the left knee with mild overlying swelling. Range of motion limited by pain. 2+ DP and PT pulses) Neurological exam: Present: alert, oriented X3, CN II-XII intact Psychiatric exam: Present: normal affect, normal mood Skin exam: Present: warm, dry, intact, normal color. Absent: rash Course Vital Signs 10/21/24 10/21/24 14:24 15:56 Temperature 98.7 F 98.4 F Pulse Rate 97 90 Respiratory 18 22 Rate Blood Pressure 128/88 132/86 O2 Sat by Pulse 99 99 Oximetry Medical Decision Making - Medical Decision Making This is a 34 year old male who presents to the emergency department for a left knee injury. Was pt. sent in by a medical professional or institution? @ -No Did you speak to anyone other than the patient for history? @ -No Did you review nursing and triage notes? @ -Yes, and I agree, it is accurate with regards to the patient's symptoms. Were old charts reviewed? @ -No Differential Diagnosis? @ -Differential Musculoskeletal Muscular strain, contusion, ligament sprain, fracture, arthritis, septic arthritis, bursitis, cellulitis, muscle spasm, nerve compression, DVT, arterial occlusion, herpes zoster, electrolyte abnormality, tumor.... This is not meant to be in all inclusive list EKG interpreted by me (3pts min.)? @ -Not obtained X-rays interpreted by me (1pt min.)? @ -X-ray of the left knee obtained. My interpretation identifies a patellar fracture. CT interpreted by me (1pt min.)? @ -Not obtained U/S interpreted by me (1pt. min.)? @ -Not obtained What testing was considered but not performed? (CT, X-rays, U/S, labs)? Why? @ -None What meds were considered but not given? Why? @ -None Did you discuss the management of the patient with other professionals? @ -No Did you reconcile home meds? @ -No Was smoking cessation discussed for >3mins.? @ -No Was critical care preformed (if so, how long)? @ -No Were there social determinants of health that impacted care today? How? (Homelessness, low income, unemployed, alcoholism, drug addiction, transportation, low edu. Level, literacy, decrease access to med. care, nursing home, rehab)? @ -No Was there de-escalation of care discussed even if they declined? (Discuss DNR or withdrawal of care, Hospice)? @ -No What co-morbidities impacted this encounter? (DM, HTN, Smoking, COPD, CAD, Cancer, CVA, Hep., AIDS, mental health diagnosis, sleep apnea, morbid obesity)? @ -None Was patient admitted / discharged? @ -Discharged. X-ray of the left knee obtained revealing a mildly displaced fracture of the mid patella and moderate suprapatellar joint effusion. Pain managed in the emergency department. He was put in a knee immobilizer and given crutches. Prescription for ibuprofen and Dupont provided with dosing instructions reviewed. Also advised ice and elevation. Information for orthopedic follow-up provided. He is instructed to contact them first thing Wednesday morning for a follow-up appointment. Patient discharged home in stable condition. Case discussed with ED attending Dr. Camara. Return precautions reviewed in depth, the patient is instructed to return to the emergency department with any new, worsening, or concerning symptoms. Patient verbalized understanding. Undiagnosed new problem with uncertain prognosis? @ -None Drug Therapy requiring intensive monitoring for toxicity (Heparin, Nitro, Insulin, Cardizem)? @ -None Were any procedures done? @ -None Diagnosis/symptom? @ -Left patella fracture Acute, or Chronic, or Acute on Chronic? @ -Acute Uncomplicated (without systemic symptoms) or Complicated (systemic symptoms)? @ -Uncomplicated Side effects of treatment? @ -None Exacerbation, Progression, or Severe Exacerbation] @ -Not applicable Poses a threat to life or bodily function? @ -May limit his ability to ambulate - Radiology Data Radiology results: report reviewed, image reviewed Disposition Clinical Impression: Left patella fracture Disposition: HOME SELF-CARE Instructions (If sedation given, give patient instructions): Crutch Instructions (ED), Patellar Fracture (ED), Knee Immobilizer (ED) Additional Instructions: Return to the emergency department with any new, worsening, or concerning symptoms. Alternate with ibuprofen and Tylenol as needed for pain relief. Take the Dupont sparingly when your pain is the most severe. Apply ice and elevate the leg. Contact orthopedics as listed below first thing Wednesday morning. Let them know that you were seen in the emergency department and found to have a fracture of your patella. They will schedule you for a follow-up appointment. Follow up with your primary care provider in 1-2 days. Prescriptions: Ibuprofen [Motrin] 800 mg PO Q8H PRN #30 tab PRN Reason: Pain HYDROcodone/APAP 5-325MG [Dupont 5-325] 1 tab PO Q6HR PRN 3 Days #12 tab PRN Reason: Pain Is patient prescribed a controlled substance at d/c from ED?: Yes When asked, does pt state using other controlled substances?: Yes If prescribed controlled substance>3 days was MAPS reviewed?: Prescribed <3 Days Referrals: Moy Brooke MD [Primary Care Provider] - 1-2 days Ulises Mendoza MD [Medical Doctor] - 1-2 days Time of Disposition: 15:34
--- NOTE | 2024-10-21 15:05 | XR ---
EXAMINATION TYPE: XR knee complete LT DATE OF EXAM: 10/21/2024 3:00 PM COMPARISON: None available. CLINICAL INDICATION: Male, 34 years old with history of Fall; PHH, pain TECHNIQUE: XR knee complete LT views submitted.. FINDINGS: Mildly displaced fracture of the mid patella. Moderate suprapatellar joint effusion. Tibia and femur appear intact. No definite radiopaque foreign body. IMPRESSION: Mildly displaced fracture of the mid patella and moderate suprapatellar joint effusion. [facility], , 10/21/2024 3:03 PM
[2024-10-21] MEDS: traMADol 50 MG STARTER PACK 3 TAB BTL PO STA (15:47)
[2024-10-21] MEDS: IBUPROFEN 600 MG STARTER PACK 4 TAB BTL PO STA (15:47)
[2024-10-21 15:58] VITALS: BP 132/86; PULSE 90; RESP 22; TEMP 98.4
== END 2024-10-21 16:00 | disposition home or self-care (01) ==
LOC: EC 14:15
DX: S82.002A Unspecified fracture of left patella, initial encounter for closed fracture (principal); F17.200 Nicotine dependence, unspecified, uncomplicated; W00.0XXA Fall on same level due to ice and snow, initial encounter
CPT/HCPCS: 99283; 96372 ×2; 73562; L1830; J1171; J1885

== ENCOUNTER 2025-02-17 11:53 | Emergency (ER) | payer OTHER ==
[2025-02-17 12:05] VITALS: BP 116/82; PULSE 118; RESP 18; TEMP 98.4
--- NOTE | 2025-02-17 12:49 | ED ---
General Adult HPI - General Chief complaint: Skin/Abscess/Foreign Body Stated complaint: R arm infection Time Seen by Provider: 02/17/25 12:22 Source: patient, RN notes reviewed Mode of arrival: ambulatory Limitations: no limitations - History of Present Illness Initial comments: 34-year-old male presents to the emergency department for evaluation of er ythematous location in his right antecubital space. He notes that this has worsened over the past 2 to 3 days. He states that 3 days ago he did inject an unknown substance in that location. He does believe that it was methamphetamine. He states that he does not frequently use IV drugs and has not used them in years but did use 3 days ago. He denies any fever or chills. Denies any nausea or vomiting. - Related Data Previous Rx's Medication Instructions Recorded ARIPiprazole [Abilify] 5 mg PO DAILY 30 Days #30 tab 03/29/23 Melatonin 5 mg PO HS 30 Days #30 tab 03/29/23 Nicotine 14Mg/24Hr Patch [Habitrol] 1 patch TRANSDERM DAILY 14 Days 03/29/23 #14 patch Nicotine Gum (Polacrilex) 2 mg BUCCAL Q2HR PRN pieceofgum 03/29/23 [Nicorette] Sertraline [Zoloft] 100 mg PO DAILY 30 Days #30 tab 03/29/23 hydrOXYzine pamoate [Vistaril] 50 mg PO DAILY PRN 30 Days #60 cap 03/29/23 traZODone HCL 150 mg PO HS 30 Days #30 tablet 03/29/23 Lidocaine [Lidocaine Rectal Cream 28 gm TP TID #28 gram 10/17/24 5%] HYDROcodone/APAP 5-325MG [[place] 1 tab PO Q6HR PRN 3 Days #12 tab 10/21/24 5-325] Ibuprofen [Motrin] 800 mg PO Q8H PRN #30 tab 10/21/24 Cephalexin [Keflex] 500 mg PO Q6HR 10 Days #40 cap 02/17/25 Allergies Allergy/AdvReac Type Severity Reaction Status Date / Time No Known Allergies Allergy Verified 02/17/25 12:04 Review of Systems ROS Statement: Those systems with pertinent positive or pertinent negative responses have been documented in the HPI. ROS Other: All systems not noted in ROS Statement are negative. Past Medical History Past Medical History: No Reported History History of Any Multi-Drug Resistant Organisms: None Reported Past Surgical History: No Surgical Hx Reported Past Psychological History: ADD/ADHD Smoking Status: Current every day smoker Past Alcohol Use History: Occasional Past Drug Use History: Cocaine, Methamphetamine General Exam Limitations: no limitations General appearance: alert, in no apparent distress Head exam: Present: atraumatic, normocephalic, normal inspection Eye exam: Present: normal appearance, PERRL, EOMI. Absent: scleral icterus, conjunctival injection, periorbital swelling ENT exam: Present: normal exam, mucous membranes moist Respiratory exam: Present: normal lung sounds bilaterally. Absent: respiratory distress, wheezes, rales, rhonchi, stridor Cardiovascular Exam: Present: regular rate, normal rhythm, normal heart sounds. Absent: systolic murmur, diastolic murmur, rubs, gallop, clicks Extremities exam: Present: full ROM, tenderness (Tenderness over erythematous area on the right antecubital space), normal capillary refill. Absent: pedal edema, joint swelling, calf tenderness Neurological exam: Present: alert, oriented X3 Psychiatric exam: Present: normal affect, normal mood Skin exam: Present: warm, dry, intact, erythema. Absent: normal color, rash Course Vital Signs 02/17/25 12:01 Temperature 98.4 F Pulse Rate 118 H Respiratory 18 Rate Blood Pressure 116/82 O2 Sat by Pulse 99 Oximetry Medical Decision Making - Medical Decision Making Was pt. sent in by a medical professional or institution (MEG Weinstein, AN/SYQ 13 NAV/C2 OPERATOR, urgent care, hospital, or fci...) When possible be specific @ -No Did you speak to anyone other than the patient for history (EMS, parent, family, police, friend...)? What history was obtained from this source @ -No Did you review nursing and triage notes (agree or disagree)? Why? @ -I reviewed and agree with nursing and triage notes Were old charts reviewed (outside hosp., previous admission, EMS record, old EKG, old radiological studies, urgent care reports/EKG's, fci records)? Report findings @ -No old charts were reviewed Differential Diagnosis (chest pain, altered mental status, abdominal pain women, abdominal pain men, vaginal bleeding, weakness, fever, dyspnea, syncope, headache, dizziness, GI bleed, back pain, seizure, CVA, palpatations, mental health, musculoskeletal)? @ -Differential Musculoskeletal Muscular strain, contusion, ligament sprain, fracture, arthritis, septic ar thritis, bursitis, cellulitis, muscle spasm, nerve compression, DVT, arterial occlusion, herpes zoster, electrolyte abnormality, tumor.... This is not meant to be in all inclusive list EKG interpreted by me (3pts min.). @ -None X-rays interpreted by me (1pt min.). @ -Limited x-ray elbow was obtained which there does not appear to be any foreign body CT interpreted by me (1pt min.). @ -None done U/S interpreted by me (1pt. min.). @ -None done What testing was considered but not performed or refused? (CT, X-rays, U/S, labs)? Why? @ -None What meds were considered but not given or refused? Why? @ -None Did you discuss the management of the patient with other professionals (professionals i.e. , PA, AN/SYQ 13 NAV/C2 OPERATOR, lab, RT, psych nurse, web content & social media manager, spring maker, teacher, chief credit officer, case assistant)? Give summary @ -No Was smoking cessation discussed for >3mins.? @ -No Was critical care preformed (if so, how long)? @ -No Were there social determinants of health that impacted care today? How? (Homelessness, low income, unemployed, alcoholism, drug addiction, transportation, low edu. Level, literacy, decrease access to med. care, longterm, rehab)? @ -No Was there de-escalation of care discussed even if they declined (Discuss DNR or withdrawal of care, Hospice)? DNR status @ -No What co-morbidities impacted this encounter? (DM, HTN, Smoking, COPD, CAD, Cancer, CVA, ARF, Chemo, Hep., AIDS, mental health diagnosis, sleep apnea, morbid obesity)? @ -None Was patient admitted / discharged? Hospital course, mention meds given and route, prescriptions, significant lab abnormalities, going to OR and other pertinent info. @ -Discharge.Laboratory studies revealed no significant leukocytosis, hemoglobin 14.8 CMP is nonactionable UA shows no evidence of infectious process. Patient's drug screen positive for cocaine and tricyclic antidepressants. X- rays obtained revealing no evidence of foreign body. Patient will be discharged home. He will be started on antibiotics. He is understanding agreeable with plan. Patient stable at time of discharge. Case discussed with Dr. Ng. Undiagnosed new problem with uncertain prognosis? @ -No Drug Therapy requiring intensive monitoring for toxicity (Heparin, Nitro, Insulin, Cardizem)? @ -No Were any procedures done? @ -No Diagnosis/symptom? @ -Cellulitis Acute, or Chronic, or Acute on Chronic? @ -Acute Uncomplicated (without systemic symptoms) or Complicated (systemic symptoms)? @ -Uncomplicated Side effects of treatment? @ -No Exacerbation, Progression, or Severe Exacerbation? @ -No Poses a threat to life or bodily function? How? (Chest pain, USA, PA, pneumonia, PE, COPD, DKA, ARF, appy, cholecystitis, CVA, Diverticulitis, Homicidal, Suicidal, threat to staff... and all critical care pts) @ -No - Lab Data Result diagrams: 02/17/25 12:48 02/17/25 12:48 Lab Results 02/17/25 02/17/25 02/17/25 Range/Units 12:48 12:48 12:48 WBC 6.66 (4.50-10.00) 10*3/uL RBC 4.53 (4.40-5.60) 10*6/uL Hgb 14.8 (13.0-17.0) g/dL Hct 43.0 (39.6-50.0) % MCV 94.9 (80.0-97.0) fL MCH 32.7 H (27.0-32.0) pg MCHC 34.4 (32.0-37.0) g/dL Plt Count 263 (140-440) 10*3/uL MPV 10.0 (9.5-12.2) fL Immature Gran % (Auto) 0.2 % Neutrophils % 65.0 % Lymphocytes % 21.3 % Monocytes % 10.4 % Eosinophils % 2.0 % Basophils % 1.1 % Immature Gran # 0.01 (0.00-0.04) 10*3/uL Neutrophils # 4.34 (1.80-7.70) 10*3/uL Lymphocytes # 1.42 (0.90-5.00) 10*3/uL Monocytes # 0.69 (0.20-1.00) 10*3/uL Eosinophils # 0.13 (0.04-0.35) 10*3/uL Basophils # 0.07 (0.00-0.10) 10*3/uL Sodium 135 L (137-145) mmol/L Potassium 4.4 (3.5-5.1) mmol/L Chloride 102 (98-107) mmol/L Carbon Dioxide 26 (22-30) mmol/L Anion Gap 7 mmol/L BUN 7 L (9-20) mg/dL Creatinine 0.60 L (0.66-1.25) mg/dL Est GFR (CKD-EPI)AfAm >90 (>60 ml/min/1.73 sqM) Est GFR (CKD-EPI)NonAf >90 (>60 ml/min/1.73 sqM) Glucose 88 (74-99) mg/dL Calcium 9.8 (8.4-10.2) mg/dL Total Bilirubin 0.6 (0.2-1.3) mg/dL AST 54 (17-59) U/L ALT 35 (4-49) U/L Alkaline Phosphatase 65 (38-126) U/L Total Protein 6.2 L (6.3-8.2) g/dL Albumin 3.9 (3.5-5.0) g/dL Urine Color Colorless Urine Appearance Clear (Clear) Urine pH 6.5 (5.0-8.0) Ur Specific [place] 1.003 (1.001-1.035) Urine Protein Negative (Negative) Urine Glucose (UA) Negative (Negative) Urine Ketones Negative (Negative) Urine Blood Negative (Negative) Urine Nitrite Negative (Negative) Urine Bilirubin Negative (Negative) Urine Urobilinogen <2.0 (<2.0) mg/dL Ur Leukocyte Esterase Negative (Negative) Urine Opiates Screen Not Detected (NotDetected) Ur Oxycodone Screen Not Detected (NotDetected) Urine Methadone Screen Not Detected (NotDetected) Ur Barbiturates Screen Not Detected (NotDetected) U Tricyclic Antidepress Detected H (NotDetected) Ur Phencyclidine Scrn Not Detected (NotDetected) Ur Amphetamines Screen Not Detected (NotDetected) U Methamphetamines Scrn Not Detected (NotDetected) U Benzodiazepines Scrn Not Detected (NotDetected) Urine Cocaine Screen Detected H (NotDetected) U Marijuana (THC) Screen Not Detected (NotDetected) Disposition Clinical Impression: Cellulitis Disposition: HOME SELF-CARE Condition: Stable Instructions (If sedation given, give patient instructions): Cellulitis (ED) Additional Instructions: Please picker operator antibiotics and take to completion. Follow up with your doctor. Return to the emergency department for new or worsening symptoms. Prescriptions: Cephalexin [Keflex] 500 mg PO Q6HR 10 Days #40 cap Is patient prescribed a controlled substance at d/c from ED?: No Referrals: Moy Brooke MD [Primary Care Provider] - 1-2 days
[2025-02-17 13:32] LABS: Basophils # (A) 0.07 10*3/uL (0.00-0.10); Basophils % (A) 1.1 %; Eosinophils # (A) 0.13 10*3/uL (0.04-0.35); HGB 14.8 g/dL (13.0-17.0); Lymphocytes # (A) 1.42 10*3/uL (0.90-5.00); Lymphocytes % (A) 21.3 %; MCH 32.7 pg (27.0-32.0); MCHC 34.4 g/dL (32.0-37.0); MCV 94.9 fL (80.0-97.0); Monocytes # (A) 0.69 10*3/uL (0.20-1.00); Monocytes % (A) 10.4 %; Neutrophils # (A) 4.34 10*3/uL (1.80-7.70); Platelet Count 263 10*3/uL (140-440); RBC 4.53 10*6/uL (4.40-5.60); RDW 14.6 % (11.5-14.5); WBC 6.66 10*3/uL (4.50-10.00)
[2025-02-17 13:39] LABS: Appearance,Urine Clear (Clear); Bilirubin,Urine Negative (Negative); Blood,Urine Negative (Negative); Color,Urine Colorless; Glucose,Urine (UA) Negative (Negative); Ketones,Urine Negative (Negative); Leukocyte Esterase,Urine Negative (Negative); Nitrite,Urine Negative (Negative); PH, Urine 6.5 (5.0-8.0); Protein,Urine Negative (Negative); Specific Gravity,Urine 1.003 (1.001-1.035); Urobilinogen,Urine <2.0 mg/dL (<2.0)
[2025-02-17 13:51] LABS: Amphetamine Screen,Urine Not Detected (NotDetected); Barbiturate Screen,Urine Not Detected (NotDetected); Benzodiazepines Screen,Urine Not Detected (NotDetected); Cocaine Screen,Urine Detected (NotDetected); Methadone Screen, Urine Not Detected (NotDetected); Opiate Screen,Urine Not Detected (NotDetected); Oxycodone Screen, Urine Not Detected (NotDetected); Phencyclidine Screen,Urine Not Detected (NotDetected); Tricyclic Antidepressant,Urine Detected (NotDetected); Urn Cannabinoid Scrn Not Detected (NotDetected)
[2025-02-17 14:00] LABS: ALT 35 U/L (4-49); AST 54 U/L (17-59); African American GFR (CKD) >90 (>60 ml/min/1.73 sqM); Albumin 3.9 g/dL (3.5-5.0); Alkaline Phosphatase 65 U/L (38-126); Anion Gap 7 mmol/L; Blood Urea Nitrogen 7 mg/dL (9-20); Calcium 9.8 mg/dL (8.4-10.2); Carbon Dioxide 26 mmol/L (22-30); Chloride 102 mmol/L (98-107); Glucose 88 mg/dL (74-99); Non-African American GFR(CKD) >90 (>60 ml/min/1.73 sqM); Potassium 4.4 mmol/L (3.5-5.1); Sodium 135 mmol/L (137-145); Total Bilirubin 0.6 mg/dL (0.2-1.3); Total Protein 6.2 g/dL (6.3-8.2)
--- NOTE | 2025-02-17 15:36 | XR ---
EXAMINATION TYPE: XR elbow limited RT DATE OF EXAM: 02/17/2025 3:11 PM COMPARISON: None CLINICAL INDICATION: Male, 34 years old with history of ?FB; PHH, pain TECHNIQUE: XR elbow limited RT; elbow was examined in AP, lateral, projections. FINDINGS: No evidence of any acute osseous pathology, joint dislocation, or soft tissue swelling is n oted. No evidence of joint effusion is present.No radiopaque foreign body. IMPRESSION: No evidence of acute fracture. No radiopaque foreign body. [facility], , 02/17/2025 3:34 PM
[2025-02-17] MEDS: CEPHALEXIN 500 MG CAP PO STA (16:09)
[2025-02-19 13:58] LABS: C. trachomatis,PCR Negative (Negative); N. gonorrhoeae,PCR Negative (Negative)
== END 2025-02-17 16:12 | disposition home or self-care (01) ==
LOC: EC 11:53
DX: L03.113 Cellulitis of right upper limb (principal); F17.200 Nicotine dependence, unspecified, uncomplicated
CPT/HCPCS: 36415; 80053; 80306; 81003; 85025; 87491; 87591; 99283